=== PATIENT | female | born 1965 | race American Indian/Alaskan Native ===

== ENCOUNTER 2016-07-18 20:33 | Emergency (ER) | payer SELFPAY ==
[2016-07-18] MEDS ORDERED: CATAPRES ONE (20:47)
[2016-07-18] MEDS ORDERED: CATAPRES PO ONE (20:57)
[2016-07-18] MEDS ORDERED: PROVENTIL IH ONE (20:59)
[2016-07-18 23:44] LABS: Basophils % (Auto) 0.9 % (0.0-1.8); Hematocrit 25.9 % (30.3-42.9); Hemoglobin 7.8 gm/dl (10.1-14.3); Mean Corpuscular HGB Conc 30 % (30-34); Platelet Count 197 K/mm3 (140-440); Red Blood Count 3.88 M/mm3 (3.65-5.03); Red Cell Distribution Width 16.9 % (13.2-15.2); White Blood Count 5.3 K/mm3 (4.5-11.0)
[2016-07-18 23:48] LABS: Mean Corpuscular Hemoglobin 20 pg (28-32); Mean Corpuscular Volume 67 fl (79-97)
[2016-07-18 23:54] LABS: Anion Gap 18 mmol/L; Blood Urea Nitrogen 3 mg/dL (7-17); Calcium 8.7 mg/dL (8.4-10.2); Carbon Dioxide 24 mmol/L (22-30); Chloride 96.8 mmol/L (98-107); Glucose 135 mg/dL (65-100); Potassium 3.2 mmol/L (3.6-5.0); Sodium 136 mmol/L (137-145)
[2016-07-19] MEDS ORDERED: PROVENTIL IH ONE (03:32)
[2016-07-19] MEDS ORDERED: ROCEPHIN IM ONE (03:54)
[2016-07-19] MEDS ORDERED: XYLOCAINE 1% MPF 5 mL INFILTRATI ONE (03:54)
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
[2016-07-19] MEDS ORDERED: K-DUR PO ONE (04:08)
--- NOTE | 2016-07-19 04:21 | XRay Report ---
FINAL REPORT PROCEDURE: XR CHEST ROUTINE TWO VIEWS PA AND LATERAL TECHNIQUE: PA and lateral chest radiographs were obtained. CPT 64870 HISTORY: Shortness of breath COMPARISON: No prior studies are available for comparison. FINDINGS: Heart: Mild enlargement. Mediastinum/Vessels: Normal. Lungs/Pleural space: There is no pulmonary edema or infiltrate or effusion. There is a small less than 1 centimeter nodular like density projecting in the left lung apex. This is too small to characterize.. Bony thorax: No acute osseous abnormality. Other: IMPRESSION: 1. There is mild heart enlargement. 2. There is no pulmonary edema or infiltrate or effusion. 3. There is a small less than 1 centimeter nodular like density projecting in lung left apex. This is too small to characterize. This could be a summation density. However a true small pulmonary nodule here is possible. When feasible I recommend a follow-up nonemergent chest CT scan to better evaluate this area to determine if there is a true pulmonary nodule here.
[2016-07-19 04:39] VITALS: BP 175/80
== END 2016-07-19 04:34 | disposition home or self-care (01) ==
LOC: ED 20:33
DX: J18.9 Pneumonia, unspecified organism (principal); D50.9 Iron deficiency anemia, unspecified; I10 Essential (primary) hypertension; R51 Headache; J45.909 Unspecified asthma, uncomplicated; E66.9 Obesity, unspecified; F17.200 Nicotine dependence, unspecified, uncomplicated
CPT/HCPCS: 36415; 71020; 80048; 84484; 84703; 85025; 93005; 93010; 94640; 96372; 99284; J0696

== ENCOUNTER 2017-05-04 09:29 | Emergency (ER) | payer SELFPAY ==
--- NOTE | 2017-05-04 15:05 | Emergency Department Report ---
Chief Complaint: Allergic Reaction Stated Complaint: FACE SWOLLEN Time Seen by Provider: 05/04/17 14:25 - HPI History of Present Illness: States that Sunday she went to [employer] and ate a fish sandwich, didn't feel that it was very good, woke up the next day with the left side of her face swollen. Admits to having some bad teeth in her mouth, and reports that her nose is congested. Denies dental pain. Denies NVD, chest pain, SOB, fever. Admits to a URI. - Exam Vital Signs: Vital Signs 05/04/17 10:34 Temperature 98.4 F Pulse Rate 90 Respiratory 16 Rate Blood Pressure 182/98 O2 Sat by Pulse 98 Oximetry Physical Exam: NAD, CTA, RRR, NT ND +BS, Soft tissue swelling to the left side of the face, poor dentition, not tender to palpation. MSE screening note: Focused history and physical exam performed. Due to findings the following was ordered: will need to have clonidine here, and likely will need augmentin 875mg PO BID x 10 days. ED Disposition for MSE Condition: Stable Referrals: PRIMARY CARE [Primary Care Provider] - 3-5 Days
[2017-05-04] MEDS ORDERED: CATAPRES PO ONE ×2 (15:16→18:27)
[2017-05-04] MEDS ORDERED: DECADRON IM ONE (16:35)
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
[2017-05-04] MEDS ORDERED: APRESOLINE IV ONE (18:13)
[2017-05-04 19:43] VITALS: BP 126/107
== END 2017-05-04 19:40 | disposition home or self-care (01) ==
LOC: ED 09:29
DX: K02.9 Dental caries, unspecified (principal); I10 Essential (primary) hypertension; J45.909 Unspecified asthma, uncomplicated
CPT/HCPCS: 96372; 99282; J1100